=== PATIENT | male | born 1965 | race Caucasian/White ===

== ENCOUNTER → 2017-04-24 | Outpatient (CLI) | payer OTHER ==
[~2017-04-24] MED LIST: ACET325T21 PO; LOSA50TA6 PO; OMEG1CAP28 PO
== END | disposition home or self-care (01) ==
LOC: WOUND 12:52
PROVIDERS: ATTEND Podiatrist Foot & Ankle Surgery
DX: L97.512 Non-pressure chronic ulcer of other part of right foot with fat layer exposed (principal); G60.8 Other hereditary and idiopathic neuropathies; M86.9 Osteomyelitis, unspecified; G62.9 Polyneuropathy, unspecified; L84 Corns and callosities; I10 Essential (primary) hypertension; Z87.891 Personal history of nicotine dependence; Z89.431 Acquired absence of right foot; Z89.022 Acquired absence of left finger(s)
CPT/HCPCS: 11042; 99205

== ENCOUNTER → 2017-05-08 | Outpatient (CLI) | payer OTHER | END | disposition home or self-care (01) | LOC: WOUND 13:18 | PROVIDERS: ATTEND Podiatrist Foot & Ankle Surgery | DX: L97.512 Non-pressure chronic ulcer of other part of right foot with fat layer exposed (principal); G60.8 Other hereditary and idiopathic neuropathies; I10 Essential (primary) hypertension; M86.9 Osteomyelitis, unspecified; G62.9 Polyneuropathy, unspecified; Z87.891 Personal history of nicotine dependence; Z89.431 Acquired absence of right foot; Z89.022 Acquired absence of left finger(s) | CPT/HCPCS: 97597 ==

== ENCOUNTER → 2017-05-22 | Outpatient (CLI) | payer OTHER | END | disposition home or self-care (01) | LOC: WOUND 10:42 | PROVIDERS: ATTEND Podiatrist Foot & Ankle Surgery | DX: L97.512 Non-pressure chronic ulcer of other part of right foot with fat layer exposed (principal); I10 Essential (primary) hypertension; M86.9 Osteomyelitis, unspecified; L84 Corns and callosities; G62.9 Polyneuropathy, unspecified; Z87.891 Personal history of nicotine dependence; Z89.431 Acquired absence of right foot; Z89.022 Acquired absence of left finger(s) | CPT/HCPCS: 97597 ==